=== PATIENT | female | born 1985 | race Caucasian/White ===

== ENCOUNTER 2020-12-07 06:39 | Emergency (ER) | payer MEDICAID ==
--- NOTE | 2020-12-07 07:17 | CR ---
INDICATION: Cough, shortness of breath. COMPARISON: none TECHNIQUE: Portable chest performed at 6:52 a.m. FINDINGS: The lungs are clear. The heart, mediastinum and pulmonary vessels are of normal size. There is no evidence of pleural fluid. IMPRESSION: No pneumonia Dictated by Husam Garcia MD @ 12/07/2020 7:15:50 AM (Electronically Signed)
--- NOTE | 2020-12-07 07:35 | EDM.PDOC ---
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 Patient first developed a sore throat approximately 14 days ago. She then developed muscle aches nasal congestion and a cough. Around 7 days ago she had a test that returned positive for COVID-19. She presents because of continuing cough productive of clear sputum and occasional blood streaks. Fever resolved myalgias resolved no vomiting or abdominal pain. No lower extremity swelling. - Related Data Allergies Allergy/AdvReac Type Severity Reaction Status Date / Time Penicillins Allergy Vomiting Verified 01/16/20 14:45 MDT Home Meds: Home Meds Pantoprazole Sodium [Protonix] 40 mg PO DAILY 09/11/18 [History] lamoTRIgine [Lamotrigine] 300 mg PO BID 09/11/18 [History] Mirtazapine [Remeron] 15 mg PO DAILY 12/03/19 [History] Varenicline Tartrate [Chantix] 1 tab PO DAILY 12/03/19 [History] Cefdinir [Omnicef] 300 mg PO BID 10 Days #20 cap 01/16/20 [Rx] FLUoxetine [PROzac] 60 mg PO DAILY 01/16/20 [History] hydrALAZINE [Apresoline] 25 mg PO ASDIRECTED 01/16/20 [History] Past Medical History HEENT History: Reports: Impaired Vision Cardiovascular History: Reports: None Respiratory History: Reports: Other (See Below) Other Respiratory History: states has seasonal asthma. Gastrointestinal History: Reports: Irritable Bowel Syndrome Other Gastrointestinal History: self-Dx'd. 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 Dermatologic History: Reports: None - Infectious Disease History Infectious Disease History: Reports: Hepatitis C - Past Surgical History HEENT Surgical History: Reports: Oral Surgery Female Surgical History: Reports: Other (See Below) Social & Family History - Family History Family Medical History: No Pertinent Family History - Tobacco Use Tobacco Use Status *Q: Never Tobacco User - Caffeine Use Caffeine Use: Reports: Coffee - Recreational Drug Use Recreational Drug Use: No - Living Situation & Occupation Living situation: Reports: Single, Other (Roommate) Occupation: Unemployed ED ROS GENERAL - Review of Systems Review Of Systems: See Below Free Text/Narrative/Comment: General: No fever. Skin: No rash. Eyes: No vision problems. ENT: Per HPI Neck: No neck stiffness. Respiratory: Per HPI Cardiac: No chest pain. Gastrointestinal: No nausea, vomiting or abdominal pain. Urinary: No dysuria. Musculoskeletal: No myalgias/arthralgias. Neurologic: No headache. ED EXAM, GENERAL - Physical Exam Exam: See Below Free Text/Narrative:: General Appearance: No acute distress, appears comfortable HEENT: Normocephalic/atraumatic, sclera anicteric, mucous membranes moist Neck: Normal range of motion Chest and Lungs: Normal work of breathing Cardiovascular: Mildly tachycardic rate regular rhythm, intact distal perfusion, no lower extremity edema Musculoskeletal: No edema Neurologic: Awake, alert, no obvious deficits, moving all extremities Psychiatric: Appropriate, cooperative Course - Vital Signs Last Recorded V/S: Last Vital Signs Temp 97.7 F 12/07/20 07:44 Pulse 101 H 12/07/20 07:44 Resp 12/07/20 07:44 BP 132/50 L 12/07/20 07:44 Pulse Ox 98 12/07/20 07:44 - Orders/Labs/Meds Orders: Active Orders 24 hr Category Date Time Status Pulse Oximetry Continuous Monitoring [OM.PC] CONTINUOUS Oth 12/07/20 06:45 Ordered Departure - Departure Time of Disposition: 07:34 Disposition: Home, Self-Care 01 Condition: Good Clinical Impression: COVID-19 - Discharge Information *PRESCRIPTION DRUG MONITORING PROGRAM REVIEWED*: Not Applicable *COPY OF PRESCRIPTION DRUG MONITORING REPORT IN PATIENT CARLYN: Not Applicable Instructions: COVID-19 Frequently Asked Questions, COVID-19: What to Do if You Are Sick - [facility] (03/22/2020) Referrals: PCP,None [Primary Care Provider] - Forms: ED Department Discharge Additional Instructions: Your symptoms are related to the ongoing COVID-19 infection. I encourage you to use [id number] medicines to help manage your symptoms please do not take any more of the medicine then as directed on the packaging. Encourage you to follow-up with primary care as well. [facility] - [facility] [address] [place] [id number] [facility] [address] [place] [id number] The following information is given to patients seen in the emergency department who are being discharged to home. This information is to outline your options for follow-up care. We provide all patients seen in our emergency department with a follow-up referral. The need for follow-up, as well as the timing and circumstances, are variable depending upon the specifics of your emergency department visit. If you don't have a primary care physician on staff, we will provide you with a referral. We always advise you to contact your personal physician following an emergency department visit to inform them of the circumstance of the visit and for follow-up with them and/or the need for any referrals to a consulting specialist. The emergency department will also refer you to a specialist when appropriate. This referral assures that you have the opportunity for follow-up care with a specialist. All of these measure are taken in an effort to provide you with optimal care, which includes your follow-up. Under all circumstances we always encourage you to contact your private physician who remains a resource for coordinating your care. When calling for follow-up care, please make the office aware that this follow-up is from your recent emergency room visit. If for any reason you are refused follow-up, please contact the [facility] Emergency Department at and asked to speak to the emergency department charge nurse. Sepsis Event Note (ED) - Focused Exam Vital Signs: Vital Signs Temp Pulse Resp BP Pulse Ox 12/07/20 07:44 97.7 F 101 H 17 132/50 L 98 12/07/20 06:42 97.3 F 110 H 18 129/59 L 98 - Assessment/Plan Assessment:: 35-year-old female presenting with persistent symptoms of COVID-19. No chest pain no hypoxia primary complaint is cough and nasal congestion no concern for PE no findings that would suggest overlying acute bacterial infection. Chest x- ray without any signs of overlying pneumonia. Symptoms consistent with ongoing Covid no concern for meningitis or encephalitis fevers have resolved. Patient will stable for discharge.
== END 2020-12-07 07:49 | disposition home or self-care (01) ==
LOC: MW.ED 06:39
DX: U07.1 COVID-19 (principal); Z88.0 Allergy status to penicillin
CPT/HCPCS: 71045; 71045-26; 99283-25

== ENCOUNTER 2020-12-07 12:44 | Emergency (ER) | payer MEDICAID ==
[2020-12-07] MEDS ORDERED: Benzonatate 100 MG Cap PO ONE (13:04)
--- NOTE | 2020-12-07 13:06 | EDM.PDOC ---
ED HPI GENERAL MEDICAL PROBLEM - General Chief Complaint: ENT Problem Stated Complaint: THROAT SORE FROM STUFF COMING UP WHEN COUGHING Time Seen by Provider: 12/07/20 12:47 Source of Information: Reports: Patient History Limitations: Reports: No Limitations - History of Present Illness INITIAL COMMENTS - FREE TEXT/NARRATIVE: HISTORY AND PHYSICAL: History of present illness: Patient is a 35-year-old female who presents to the emergency room with complaints of productive cough, sore throat and not feeling any improvement after having been diagnosed with COVID-19 approximately 1 week ago. Patient states that her symptoms started approximately 14 days ago, stating "I should have been cleared by now but I am not getting any better". She was evaluated in the emergency room this morning and had a chest x-ray as her main complaint is cough. She is upset as she was told that her chest x-ray shows no pneumonia. Patient states "if COVID was not around you would be giving the antibiotics". She is also requesting something for her throat pain as she states she is coughing so hard that it is causing worsening irritation. Patient denies any fever, chills, headache, change in vision, syncope or near syncope. Denies any chest pain, back pain, shortness of breath or hemoptysis. She denies any GI or symptoms. Patient has been eating and drinking appropriately. Review of systems: As per history of present illness and below otherwise all systems reviewed and negative. Past medical history: As per history of present illness and as reviewed below otherwise noncont ributory. Surgical history: As per history of present illness and as reviewed below otherwise noncontributory. Social history: See social history for further information Family history: As per history of present illness and as reviewed below otherwise noncontributory. Physical exam: General: Well developed and well nourished. Alert and orientated x 3. Nontoxic in appearance and in no acute distress. Vital signs are stable and have been reviewed by me. Nursing notes were reviewed. HEENT: Atraumatic, normocephalic, pupils equal and reactive bilaterally, negative for conjunctival pallor or scleral icterus, mucous membranes moist, TMs normal bilaterally, throat clear, neck supple, nontender, trachea midline. No drooling or trismus noted. No meningeal signs. No hot potato voice noted. Lungs: Clear to auscultation bilaterally. No wheezes, rales, or rhonchi. Chest nontender. Normal work of breathing, no accessory muscles used. Heart: S1S2, regular rate and rhythm without overt murmur, gallops, or rubs. No JVD. No peripheral edema Abdomen: Soft, nondistended, nontender. Normoactive bowel sounds. Negative for masses or costovertebral tenderness. Pelvis: Stable nontender. Genitourinary/Rectal: Deferred. Skin: Intact, warm, dry. No lesions or rashes noted. Hematologic: No petechiae or purpra. Mucosa appropriate color and normal nail bed color and refill. Extremities: Atraumatic, moves all extremities per self without difficulty or deficits, negative for cords or calf pain. Neurovascular unremarkable. Neuro: Awake, alert, oriented. Cranial nerves II through XII unremarkable. C erebellum unremarkable. Motor and sensory unremarkable throughout. Exam nonfocal. Psychiatric: Mood and affect are appropriate. Normal thought process. Answering questions appropriately. Please note that the patient was seen and evaluated during the 2019 SARS-CoV-2 novel coronavirus pandemic period. Community viral transmission is ongoing at time of this encounter and the emergency department is operating under pandemic response procedures. Medical Decision Making: Patient is a 35 female who presents to the emergency room having been previously diagnosed with COVID-19 and she is concerned she is not improving as she expected. She states symptoms have been going on for 14 days and she continues to have a cough. Does not have throat pain although states her throat is sore from the amount of coughing she has been doing. She is upset that she is not receiving medications for the cough and her pain. I do see she was seen this morning and had a chest x-ray which is unremarkable. We will do basic lab work, which she is agreeable to. After lab draw patient has eloped from the emergency room. She was seen outside in the parking lot and asked to come back in and wait for her results, she declined. Left against medical advice. Diagnostics: CBC, CMP Therapeutics: [employer] Impression: COVID-19 Sinusitis Hypokalemia Left against medical advice Definitive disposition and diagnosis as appropriate pending reevaluation and review of above. general Pain Score (Numeric/FACES): 8 - Related Data Allergies Allergy/AdvReac Type Severity Reaction Status Date / Time Penicillins Allergy Vomiting Verified 01/16/20 14:45 MDT Home Meds: Home Meds Pantoprazole Sodium [Protonix] 40 mg PO DAILY 09/11/18 [History] lamoTRIgine [Lamotrigine] 300 mg PO BID 09/11/18 [History] Mirtazapine [Remeron] 15 mg PO DAILY 12/03/19 [History] Varenicline Tartrate [Chantix] 1 tab PO DAILY 12/03/19 [History] Cefdinir [Omnicef] 300 mg PO BID 10 Days #20 cap 01/16/20 [Rx] FLUoxetine [PROzac] 60 mg PO DAILY 01/16/20 [History] hydrALAZINE [Apresoline] 25 mg PO ASDIRECTED 01/16/20 [History] Past Medical History HEENT History: Reports: Impaired Vision Cardiovascular History: Reports: None Respiratory History: Reports: Other (See Below) Other Respiratory History: states has seasonal asthma. Gastrointestinal History: Reports: Irritable Bowel Syndrome Other Gastrointestinal History: self-Dx'd. 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 Dermatologic History: Reports: None - Infectious Disease History Infectious Disease History: Reports: Hepatitis C - Past Surgical History HEENT Surgical History: Reports: Oral Surgery Female Surgical History: Reports: Other (See Below) Social & Family History - Family History Family Medical History: No Pertinent Family History - Caffeine Use Caffeine Use: Reports: Coffee - Living Situation & Occupation Living situation: Reports: Single, Other (Roommate) Occupation: Unemployed ED ROS GENERAL - Review of Systems Review Of Systems: Comprehensive ROS is negative, except as noted in HPI. ED EXAM, GENERAL - Physical Exam Exam: See Below (See dictation) Course - Vital Signs Last Recorded V/S: Last Vital Signs Temp 96.8 F L 12/07/20 12:48 Pulse 68 12/07/20 12:48 Resp 18 12/07/20 12:48 BP 125/71 12/07/20 12:48 Pulse Ox 99 12/07/20 12:48 - Orders/Labs/Meds Labs: Laboratory Tests 12/07/20 12/07/20 Range/Units 13:15 13:15 WBC 11.57 H (4.0-11.0) K/uL RBC 4.21 L (4.30-5.90) M/uL Hgb 12.3 (12.0-16.0) g/dL Hct 34.5 L (36.0-46.0) % MCV 81.9 (80.0-98.0) fL MCH 29.2 (27.0-32.0) pg MCHC 35.7 (31.0-37.0) g/dL RDW Std Deviation 39.1 (28.0-62.0) fl RDW Coeff of Perez 13 (11.0-15.0) % Plt Count 303 (150-400) K/uL MPV 9.60 (7.40-12.00) fL Neut % (Auto) 69.1 (48.0-80.0) % Lymph % (Auto) 16.1 (16.0-40.0) % [place] % (Auto) 14.3 (0.0-15.0) % Eos % (Auto) 0.3 (0.0-7.0) % Baso % (Auto) 0.2 (0.0-1.5) % Neut # (Auto) 8.0 H (1.4-5.7) K/uL Lymph # (Auto) 1.9 (0.6-2.4) K/uL [place] # (Auto) 1.7 H (0.0-0.8) K/uL Eos # (Auto) 0.0 (0.0-0.7) K/uL Baso # (Auto) 0.0 (0.0-0.1) K/uL Nucleated RBC % 0.0 /100WBC Nucleated RBCs # 0 K/uL Sodium 137 (136-145) mmol/L Potassium 3.0 L (3.5-5.1) mmol/L Chloride 102 (98-107) mmol/L Carbon Dioxide 25.5 (21.0-32.0) mmol/L BUN 3 L (7.0-18.0) mg/dL Creatinine 0.8 (0.6-1.0) mg/dL Est Cr Clr Drug Dosing TNP Estimated GFR (MDRD) > 60.0 ml/min Glucose 115 H (74-106) mg/dL Calcium 8.0 L (8.5-10.1) mg/dL Total Bilirubin 0.3 (0.2-1.0) mg/dL AST 26 (15-37) IU/L ALT 38 (14-63) IU/L Alkaline Phosphatase 132 H (46-116) U/L Total Protein 7.1 (6.4-8.2) g/dL Albumin 3.2 L (3.4-5.0) g/dL Globulin 3.9 (2.6-4.0) g/dL Albumin/Globulin Ratio 0.8 L (0.9-1.6) Meds: Medications Discontinued Medications Generic Name Dose Route Start Last Admin Trade Name Freq PRN Reason Stop Dose Admin Benzonatate 100 mg 12/07/20 13:04 12/07/20 13:08 Benzonatate 100 Mg Cap PO 12/07/20 13:05 100 mg ONETIME ONE Administration Potassium Chloride 40 meq 12/07/20 13:56 12/07/20 14:05 Potassium Chloride 20 Meq Tab.Er PO 12/07/20 13:57 Not Given ONETIME ONE Departure - Departure Time of Disposition: 13:39 Disposition: Against Medical Advice 07 Clinical Impression: COVID-19, Sinusitis, Hypokalemia, Left against medical advice - Discharge Information Instructions: Sinusitis, Adult Referrals: PCP,None [Primary Care Provider] - Forms: ED Department Discharge Sepsis Event Note (ED) - Focused Exam Vital Signs: Vital Signs Temp Pulse Resp BP Pulse Ox 12/07/20 12:48 96.8 F L 68 18 125/71 99
[2020-12-07 13:42] LABS: BLOOD UREA NITROGEN,BUN 3 mg/dL (7.0-18.0); CARBON DIOXIDE,CO2 25.5 mmol/L (21.0-32.0); CHLORIDE,CL 102 mmol/L (98-107); GLUCOSE RANDOM 115 mg/dL (74-106); SODIUM,NA 137 mmol/L (136-145)
[2020-12-07] MEDS ORDERED: Potassium Chloride 20 MEQ Tab.ER PO ONE (13:56)
== END 2020-12-07 14:05 | disposition left against medical advice (07) ==
LOC: MW.ED 12:44
DX: U07.1 COVID-19 (principal); J32.9 Chronic sinusitis, unspecified; E87.6 Hypokalemia; Z88.0 Allergy status to penicillin; Z53.8 Procedure and treatment not carried out for other reasons
CPT/HCPCS: 36415; 80053; 85025; 99283; A9270